=== PATIENT | male | born 1955 | race Caucasian/White ===

== ENCOUNTER 2018-05-27 23:10 | Emergency (ER) | payer BC ==
[~2018-05-27] VITALS: Ht 165.1 cm; Wt 80.7 kg
[2018-05-27 23:10] VITALS: BP 164/87
[2018-05-27] MEDS ORDERED: HYDR-3165 PO (23:51)
[2018-05-27] MEDS ORDERED: CLIN300C8 PO (23:51)
--- NOTE | 2018-05-28 00:16 | PHYS DOC ---
Adult General Chief Complaint Chief Complaint dental pain HPI HPI 62 years old male presented to the emergency department with dental pain he said he was diagnosed with the abscess few days ago he is on amoxicillin and ibuprofen not improving Review of Systems Review of Systems Constitutional: Denies fever or chills [] Eyes: Denies change in visual acuity, redness, or eye pain [] HENT: Denies nasal congestion or sore throat [] Respiratory: Denies cough or shortness of breath [] Cardiovascular: No additional information not addressed in HPI [] GI: Denies abdominal pain, nausea, vomiting, bloody stools or diarrhea [] : Denies dysuria or hematuria [] Musculoskeletal: Denies back pain or joint pain [] Integument: Denies rash or skin lesions [] Neurologic: Denies headache, focal weakness or sensory changes [] Endocrine: Denies polyuria or polydipsia [] All other systems were reviewed and found to be within normal limits, except as documented in this note. Current Medications Current Medications Current Medications Medications (Trade) Dose Ordered Sig/Yusuf Start Time Stop Time Status Last Admin Dose Admin Acetaminophen/ Hydrocodone Bitart (Lortab 10/325) 1 tab 1X ONCE 05/27/18 23:45 05/27/18 23:46 UNV Ceftriaxone Sodium (Rocephin Im) 1 gm 1X ONCE 05/27/18 23:45 05/27/18 23:46 UNV Physical Exam Physical Exam Constitutional: Well developed, well nourished, no acute distress, non-toxic appearance. [] HENT: Normocephalic, atraumatic, bilateral external ears normal, oropharynx moist, no oral exudates, nose normal. [] Eyes: PERRLA, EOMI, conjunctiva normal, no discharge. [] Neck: Normal range of motion, no tenderness, supple, no stridor. [] Cardiovascular:Heart rate regular rhythm, no murmur [] Lungs & Thorax: Bilateral breath sounds clear to auscultation [] Abdomen: Bowel sounds normal, soft, no tenderness, no masses, no pulsatile masses. [] Skin: Warm, dry, no erythema, no rash. [] Back: No tenderness, no CVA tenderness. [] Extremities: No tenderness, no cyanosis, no clubbing, ROM intact, no edema. [] Neurologic: Alert and oriented X 3, normal motor function, normal sensory function, no focal deficits noted. [] Psychologic: Affect normal, judgement normal, mood normal. [] EKG EKG [] Radiology/Procedures Radiology/Procedures [] Course & Med Decision Making Course & Med Decision Making Pertinent Labs and Imaging studies reviewed. (See chart for details) [] Final Impression Final Impression [] Problems: (1) Dental abscess Dragon Disclaimer Dragon Disclaimer This electronic medical record was generated, in whole or in part, using a voice recognition dictation system. BETHANIE TITUS MD May 28, 2018 00:16
[2018-05-28] MEDS ORDERED: cefTRIAXone SODIUM 1 GM VIAL IV ONE (00:19)
[2018-05-28] MEDS ORDERED: LIDOCAINE 1% Multi-Dose 20 ML VIAL. ONE (00:20)
[2018-05-28] MEDS ORDERED: cefTRIAXone IM 1 GM VIAL IM ONE (00:30)
[2018-05-28] MEDS ORDERED: HYDROcodone/APAP 10/325 1 TAB TABLET PO ONE (00:30)
== END 2018-05-28 00:36 | disposition home or self-care (01) ==
LOC: ER 23:10
DX: K04.7 Periapical abscess without sinus (principal)
CPT/HCPCS: 99283